=== PATIENT | female | born 1960 | race Two or more races ===

== ENCOUNTER 2017-11-06 12:17 | Outpatient (CLI) | payer OTHER ==
[~2017-11-06 12:17] MED LIST: AGGRENOX CAP1 BOTTLE PO; ANTIVERT25 MG PO; PLETAL100 MG PO; SUPPORT-5001 CAP PO
== END 2017-11-06 13:00 | disposition home or self-care (01) ==
LOC: NUCLEAR 12:17
DX: M81.0 Age-related osteoporosis without current pathological fracture (principal)

== ENCOUNTER 2017-11-06 12:48 | Outpatient (CLI) | payer OTHER | END 2017-11-06 12:51 | disposition home or self-care (01) | LOC: MAMO-SONO 12:48 | DX: Z12.31 Encounter for screening mammogram for malignant neoplasm of breast (principal); Z87.898 Personal history of other specified conditions; C50.912 Malignant neoplasm of unspecified site of left female breast; C50.911 Malignant neoplasm of unspecified site of right female breast ==

== ENCOUNTER → 2018-10-15 | Outpatient (CLI) | payer OTHER | END | disposition home or self-care (01) | LOC: NUCLEAR 13:16 | DX: I38 Endocarditis, valve unspecified (principal) ==

== ENCOUNTER 2019-03-06 12:42 | Outpatient (CLI) | payer OTHER | END 2019-03-06 13:30 | disposition home or self-care (01) | LOC: NUCLEAR 12:42 | DX: I63.9 Cerebral infarction, unspecified (principal) ==

== ENCOUNTER → 2019-03-06 | Outpatient (CLI) | payer OTHER | END | disposition home or self-care (01) | LOC: MRI 02-27 11:15 | DX: I63.89 Other cerebral infarction (principal); R47.1 Dysarthria and anarthria; G31.84 Mild cognitive impairment of uncertain or unknown etiology; I69.398 Other sequelae of cerebral infarction | CPT/HCPCS: 70553; A9575 ==